=== PATIENT | female | born 1985 | race Caucasian/White ===

== ENCOUNTER → 2021-05-02 | Day surgery (SDC) | payer OTHER ==
[~2021-05-02] VITALS: Ht 162.6 cm; Wt 66.7 kg
[~2021-05-02] MED LIST: COLACE100 MG PO; MOTRIN600 MG PO; NORCO 5-325 TA1 EACH PO; ONDANSETRON ODT4 MG PO; SYNTHROID75 MCG PO; ZYRTEC10 M3 PO
[2021-05-02 10:28] LABS: HCG (URINE) SCREEN NEGATIVE (NEGATIVE)
== END | disposition home or self-care (01) ==
LOC: FAS 09:57
PROVIDERS: Anesthesiology
DX: K81.1 Chronic cholecystitis (principal); K82.8 Other specified diseases of gallbladder; E03.9 Hypothyroidism, unspecified; Z79.899 Other long term (current) drug therapy; Z88.5 Allergy status to narcotic agent; Z80.0 Family history of malignant neoplasm of digestive organs; Z72.89 Other problems related to lifestyle
CPT/HCPCS: 84703; J1100; J1170; J1644; J2250; J2270; J2405; J2550; J2704; J2710; J2765; J3010; J7120; Q9967